=== PATIENT | male | born 1945 | race Hispanic/Latino ===

== ENCOUNTER 2018-01-12 15:09 | Outpatient (CLI) | payer MEDICARE | END 2018-01-12 15:10 | disposition home or self-care (01) | LOC: BICULT 15:09 | PROVIDERS: ATTEND Family Medicine | DX: G46.4 Cerebellar stroke syndrome (principal); I48.2 Chronic atrial fibrillation | CPT/HCPCS: 93880 ==

== ENCOUNTER 2018-11-03 08:53 | Outpatient (CLI) | payer MEDICARE ==
[2018-11-03 09:29] LABS: Estimated GFR-MDRD - POC Greater than 90
--- NOTE | 2018-11-03 11:47 | CT ---
CT ANGIOGRAM OF THE HEAD CT ANGIOGRAM OF THE NECK Date: 11-03-18 Comparison: 11-15-16 History: Transient ischemic attack. Technique: Axial CT imaging is obtained at 5 mm intervals from vertex through skull base without cont rast. Then, following the administration of intravenous contrast, axial CT imaging at 1.25 mm interva ls from vertex through apices with IV contrast using a CT angiogram protocol. Coronal and sagittal 3D reformatted imaging obtained. FINDINGS: The noncontrast enhanced head CT demonstrates encephalomalacia involving the superior aspect of the r ight cerebellar hemisphere, evidence of prior right cerebellar infarction. In the left frontoparietal region there is a vague area of hypodensity with loss of mars white differentiation suggesting an ar ea of acute/subacute infarction, consistent with provided history of small stroke approximately on e week ago. There is no associated hemorrhage, midline shift, or mass effect. Images paranasal sinuses/mastoid air cells well aerated. On post contrast imaging, imaged lung apices appear grossly unremarkable. The retro, antral and parapharyngeal fat appears clear bilaterally. The parotid and submandibular glands appear grossly unremarkable. Region of the tonsillar pillars, epiglottis and pre epiglottic fat, hyoid bone, thyroid cartilage, cr icoid cartilage and thyroid gland appear grossly unremarkable. No lymphadenopathy is noted in the neck. There is a bovine arch present. There is mild atherosclerotic calcification at the origin of the left common carotid artery and left subclavian artery with no hemodynamically significant stenosis. There is atherosclerotic calcificatio n at the origin of the right subclavian artery with no hemodynamically significant stenosis. Left com mon carotid artery is tortuously proximally and demonstrates no hemodynamically significant stenosis on the basis of NASCET criteria. Right common carotid artery is tortuous proximally as well. Minimal calcified plaque at the origin of the left internal carotid artery with no hemodynamically si gnificant stenosis seen. There is prominent calcified plaque at the level of the distal right CCA and proximal right ICA with prominent stenosis at this level, difficult to accurately measure secondary to the degree of densely calcified plaque. The stenosis involving the distal most aspect of the left common carotid artery and origin of the left internal carotid artery is felt to be stable when compared to 11-05-16, measuring i n the 50-60% range. The bilateral vertebral arteries are patent and appear grossly unremarkable. CT angiogram of the head demonstrates a patent basilar artery. The basilar arterial branches appear p atent with no hemodynamically significant stenosis or sacular aneurysm. As seen on the prior examinat ion, the distal portion of the right superior cerebellar artery is occluded. There is atherosclerotic calcification involving the cavernous segment of bilateral internal carotid arteries. The A1 segment is patent bilaterally and distal DENA branches appear grossly unremarkable. The M1 segment, the MCA bifurcation and distal MCA branches appear intact. Review of the osseous structures demonstrate degenerative change ant the C1-2 interspace. There is al so degenerative change involving the C4-5, C5-6 and C6-7 levels with disc spaced narrowing and anteri or osteophyte formation. IMPRESSION: 1. Noncontrast enhanced head CT demonstrates acute/subacute infarction involving left posterior later al frontoparietal region near vertex. No associated hemorrhage. 2. On the basis of heavily calcified plaque, there is stable stenosis at the distal CCA/proximal ICA on the right. 3. No hemodynamically significant stenosis involving the parotid system on the left. POS: JAIME
[2018-11-03] MEDS ORDERED: Iopamidol 370 76% 100 ML VIAL ONE (16:51)
== END 2018-11-03 08:54 | disposition home or self-care (01) ==
LOC: CT 08:53
PROVIDERS: ATTEND Student in an Organized Health Care Education/Training Program
DX: G45.9 Transient cerebral ischemic attack, unspecified (principal); I63.9 Cerebral infarction, unspecified; I65.21 Occlusion and stenosis of right carotid artery
CPT/HCPCS: 70496; 70498; 82565

== ENCOUNTER 2020-01-16 06:34 | Day surgery (SDC) | payer MEDICARE ==
[2020-01-15 11:08] VITALS: BMI 32.9
[2020-01-16] MEDS ORDERED: PROPOFOL 200 MG/20 ML VIAL ONE (10:26)
--- NOTE | 2020-01-16 11:24 | OP ---
DATE OF PROCEDURE: 01/16/2020 PROCEDURE PERFORMED: Colonoscopy with snare polypectomy. PREOPERATIVE DIAGNOSIS: Colon cancer screening. DESCRIPTION OF PROCEDURE: Informed consent was obtained from the patient. He was sedated with total intravenous anesthesia. The rectal exam was performed and was normal. The colonoscope was advanced to the cecum, where the ileocecal valve and appendiceal orifice were clearly identified. The preparation quality was excellent. He had a 4 mm polyp removed from the ascending colon by cold snare polypectomy. I removed a 4 mm polyp from the descending colon by cold snare polypectomy. There was klyo-[id number] left-sided diverticulosis. The remainder of the colonic mucosa was normal. Retroflexed views in the rectum were normal. IMPRESSION: 1. A 4 mm ascending polyp was removed. 2. A 4 mm descending polyp was removed. 3. Left-sided teip-aq-ommfrtvl diverticulosis. RECOMMENDATIONS: 1. Await histopathology. 2. He should not require future colonoscopy for [employer] screening alone. Job ID: [id number]
--- NOTE | 2020-01-16 22:55 | EKG ---
Test Reason : PREOP Blood Pressure : / mmHG Vent. Rate : 083 BPM Atrial Rate : 234 BPM P-R Int : 000 ms QRS Dur : 150 ms QT Int : 428 ms P-R-T Axes : 000 -54 088 degrees QTc Int : 502 ms Atrial fibrillation Left axis deviation Left bundle branch block Abnormal ECG When compared with ECG of 15-NOV-2016 01:36, Atrial fibrillation has replaced Sinus rhythm Confirmed by IDALMIS BRUNSON, DR. Jimenez ([id number]) on 01/16/2020 10:54:49 PM Referred By: SAWYER Confirmed By:DR. Barbara RAYGOZA MD
== END 2020-01-16 09:48 | disposition home or self-care (01) ==
LOC: SDC 06:34
PROVIDERS: ATTEND Internal Medicine Gastroenterology
PROC: 0DBK8ZX Excision of Ascending Colon, Via Natural or Artificial Opening Endoscopic, Diagnostic (ICD-10-PCS; principal; 2020-01-16)
PROC: 0DBM8ZX Excision of Descending Colon, Via Natural or Artificial Opening Endoscopic, Diagnostic (ICD-10-PCS; 2020-01-16)
DX: Z12.11 Encounter for screening for malignant neoplasm of colon (principal); D12.2 Benign neoplasm of ascending colon; D12.4 Benign neoplasm of descending colon; K57.30 Diverticulosis of large intestine without perforation or abscess without bleeding; I48.91 Unspecified atrial fibrillation; I11.0 Hypertensive heart disease with heart failure; I50.9 Heart failure, unspecified; M81.0 Age-related osteoporosis without current pathological fracture; Z79.02 Long term (current) use of antithrombotics/antiplatelets; Z79.82 Long term (current) use of aspirin; Z79.899 Other long term (current) drug therapy; Z88.0 Allergy status to penicillin; Z91.013 Allergy to seafood; Z91.041 Radiographic dye allergy status
CPT/HCPCS: 88305; 93005; 93010; J2704

== ENCOUNTER 2020-02-02 11:40 | Emergency (ER) | payer MEDICARE ==
[~2020-02-02 11:40] MED LIST: EPHEDRINE 25 MG/5 ML SYRINGE ONE; Ropivacaine 0.5% HCl/PF (150 MG/30 ML VIAL) ONE
--- NOTE | 2020-02-02 12:40 | RAD ---
Right Little finger 3 views HISTORY: Injury. FINDINGS: Oblique laceration/fracture through the distal phalanx, extending just medial to the articu lar surface at the base. There is minimal valgus angulation at the fracture plane. 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 Extensive associated soft tissue laceration. No metallic foreign bodies evident. IMPRESSION : Fracture/laceration of the distal phalanx right little finger without intra-articular component evide nt.
[2020-02-02] MEDS ORDERED: Adacel (T-DAP) 0.5 ML SYRINGE ONE (13:51)
[2020-02-02] MEDS ORDERED: Vancomycin 1 GM/200 ML BAG ONE (14:24)
[2020-02-02] MEDS ORDERED: Fentanyl 100 MCG/2 ML VIAL ONE (14:30)
[2020-02-02] MEDS ORDERED: Lidocaine 1% w/Epinephrine 1:100K 20 ML VIAL ONE (15:05)
[2020-02-02] MEDS ORDERED: Bupivacaine PF 0.5% 30 ML VIAL ONE (15:05)
[2020-02-02] MEDS ORDERED: Bacitracin Zinc Ointment 30 gm TUBE ONE (15:05)
[2020-02-02] MEDS ORDERED: Midazolam HCl 2 mg/2 ml Vial ONE (15:36)
[2020-02-02] MEDS ORDERED: Propofol 500 MG/50 ML VIAL ONE (15:44)
[2020-02-02] MEDS ORDERED: EPHEDRINE 25 MG/5 ML SYRINGE ONE (16:08)
--- NOTE | 2020-02-02 18:04 | RAD ---
RIGHT LITTLE FINGER TWO VEIWS: 02/02/20 HISTORY: Intraoperative films. These show pinning of the distal phalanx fracture which appears to be stable and in good position. IMPRESSION: Pinning of distal phalanx fracture. POS: JOSE
--- NOTE | 2020-02-04 09:54 | OP ---
DATE OF PROCEDURE: 02/02/2020 PREOPERATIVE DIAGNOSES: 1. Open distal phalanx fracture, right small finger. 2. Right small finger 3 cm wound. 3. Right ulnar digital nerve laceration, small finger. FINDINGS: 2 rami laceration, digital nerve ulnar aspect with 1 to 2 mm of comminution and loss of bone secondary to saw, required grafting after fixation. PROCEDURES PERFORMED: 1. Debridement of bone and material associated with open fracture, right small finger distal phalanx. 2. Debridement of wound, right small finger distal phalanx. 3. Closure of wound, right small finger 3 cm. 4. C-arm supervision by surgeon intraoperatively. 5. Open reduction and internal fixation of distal phalanx fracture using three 0.035 K-wires. 6. Microscopic digital nerve neuroplasty. 7. Microscopic digital nerve repair. 8. Bone graft Synthes, 0.25 mm of bone putty. TOURNIQUET TIME: 95 minutes. ESTIMATED BLOOD LOSS: Less than or equal to 20 mL. HISTORY: The patient is on Plavix, had his hand caught by his band saw in his own work site at home. This occurred approximately 3 hours prior to surgery and brought to the operating room because of an open fracture, possible contamination, and need to restore anatomy and clean deep in order to prevent infection and making this an urgent case. DESCRIPTION OF PROCEDURE: After successful general endotracheal anesthesia, limb was prepped and draped. After prep and drape before tourniquet inflated, he had 1-second refill and pink digits. We then exsanguinated the limb, inflated tourniquet to 250 mmHg pressure and his block worked well. We then immediately extended this incision 5 mm distal along the ulnar aspect of the space and 1 cm proximal to expose the entire digital nerve. We saw that 2 rami were cut, the 2 most ulnar rami, with the central rami intact into the skin itself on the distal edge of the laceration. We saw the flexor tendon and its sheath unviolated as the bony laceration was distal to its insertion. We then performed debridement using a curette, freer, Smith blade, and tenotomy scissors. We then irrigated with 2 L normal saline bulb syringe pressure, antibiotics inside. The debridement was excisional and the depth was down to include the bone all way to the dorsal portion. We had a palmar approach, finished irrigation, and then visualized the fracture site, reduced it nearly anatomically except for on the palmar aspect, there was more bone loss in the dorsal aspect, so once this reduced, the dorsal 50% and the palmar 50% had a 1 mm bone loss. We maintained excellent rotation and passed three K-wires from distal to proximal and it was very stable construct. We then placed the bone putty inside. We brought the microscope to the field and did a microscopic neuroplasty and found the ulnar digital nerve. The radial side was not violated at the neurovascular bundle. We then noticed that 2 rami were cut, the 2 most ulnar rami, and we found the opposite side. We then used a 9-0 Nurolon suture under microscope to repair the digital nerve branches. This was done with a 2-suture technique for each nerve repair. We released the tourniquet. Microscope was removed from the field. We then saw that the patient had a 20-degree flexion of the DIP joint and 50-degree flexion of the PIP joint at rest and had a normal arc of flexion seen. We then closed the incision with 5-0 nylon interrupted simple pattern. Digits remained pink with 1-second refill. The wires were cut at the level of the skin and the patient left the operating room with radiographs showing excellent position of the fracture and clinically knowing we had placed the bone graft. Job ID: [id number]
--- NOTE | 2020-02-07 13:10 | EKG ---
Test Reason : SX Blood Pressure : / mmHG Vent. Rate : 065 BPM Atrial Rate : 065 BPM P-R Int : 000 ms QRS Dur : 150 ms QT Int : 490 ms P-R-T Axes : 066 -54 116 degrees QTc Int : 509 ms Sinus rhythm with 1st degree A-V block Left axis deviation Left bundle branch block Abnormal ECG Confirmed by MARILEE GUTIÉRREZ DO ([id number]), map editor YESSENIA MENDENHALL ([id number]) on 02/07/2020 1:10:40 PM Referred By: MARLA Confirmed By:MARILEE GUTIÉRREZ DO
== END 2020-02-02 14:00 | disposition admitted as inpatient to this hospital (09) ==
LOC: ERS 11:40 → SDC 14:45
DX: S62.636A Displaced fracture of distal phalanx of right little finger, initial encounter for closed fracture (principal); S61.216A Laceration without foreign body of right little finger without damage to nail, initial encounter; I48.91 Unspecified atrial fibrillation; E78.5 Hyperlipidemia, unspecified; I10 Essential (primary) hypertension; Z87.891 Personal history of nicotine dependence; W45.8XXA Other foreign body or object entering through skin, initial encounter
CPT/HCPCS: 76000; 90471; 90715; 93005; J2250; J2704; J2795; J3010; J3370; J3490; S0020

== ENCOUNTER 2022-09-19 17:30 | Inpatient (IN) | payer MEDICARE, OTHER ==
[~2022-09-19 17:30] MED LIST changes: -EPHEDRINE 25 MG/5 ML SYRINGE ONE; +Iopamidol-370 76% 500 ML 1 ML ONE; -Ropivacaine 0.5% HCl/PF (150 MG/30 ML VIAL) ONE
[2022-09-19 17:50] LABS: #Eosinphils 0.3 thou/uL (0.0-0.7); #Lymphocytes 2.8 thou/uL (1.20-3.40); #Monocytes 0.9 thou/uL (0.11-0.59); #Neutrophils 3.5 thou/uL (1.40-6.50); %Basophils 0.3 % (0.0-1.0); %Eosinophils 4.6 % (0.0-10.0); %Lymphocytes 36.9 % (21.0-51.0); %Monocytes 12.1 % (0.0-10.0); %Neutrophils 46.1 % (42.0-75.0); Mean Corpuscular HGB CONC 33.9 g/dL (32.0-36.0); Mean Corpuscular Hemoglobin 34.1 pg (27.0-31.0); Mean Platelet Volume 7.6 fL (7.4-10.4); Platelet Count 200 10x3/uL (130-400); RBC Distribution Width 11.8 % (11.5-14.5); Red Blood Cell (RBC) Count 4.39 mill/uL (4.70-6.10); White Blood Cell (WBC) Count 7.5 10x3/uL (4.8-10.8)
[2022-09-19] MEDS ORDERED: methylPREDNISolone Sod Succ/PF 125 MG/2 ML VIAL ONE (18:00)
[2022-09-19] MEDS ORDERED: diphenhydrAMINE 50 MG/ML VIAL ONE (18:00)
[2022-09-19] MEDS ORDERED: Famotidine/PF 20 mg/2ml Vial ONE (18:00)
[2022-09-19 18:03] LABS: INR-International Normal Ratio 1.1; PTT 34.9 sec (22.9-36.1); Prothrombin Time 14.7 sec (12.0-14.7)
[2022-09-19 18:05] LABS: ALT (SGPT) 11 U/L (8-55); AST (SGOT) 14 U/L (5-34); Albumin 4.3 g/dL (3.4-4.8); Alkaline Phosphatase 91 U/L (40-110); Anion Gap 12 mmol/L (10-20); BUN (Urea Nitrogen) 15 mg/dL (8.4-25.7); Bilirubin, Total 0.7 mg/dL (0.2-1.2); CK (CPK) 100 U/L (30-200); Calc. Creatinine Clearance 0 mL/min (70-130); Calcium 9.2 mg/dL (7.8-10.44); Carbon Dioxide 28 mmol/L (23-31); Chloride 104 mmol/L (98-107); Estimated GFR 73; Globulin 3.8 g/dL (2.4-3.5); Glucose 110 mg/dL (83-110); Potassium 4.3 mmol/L (3.5-5.1); Protein, Total 8.1 g/dL (5.8-8.1); Sodium 140 mmol/L (136-145)
[2022-09-19] MEDS ORDERED: Ondansetron PF 4 MG/2 ML Vial IVP PRN (20:18)
[2022-09-19] MEDS ORDERED: Acetaminophen 325 MG TAB PO PRN (20:18)
[2022-09-19] MEDS: Atorvastatin Calcium 40 MG TAB PO SCH (22:14)
[2022-09-19] MEDS: Metoprolol Tartrate 25 MG TAB PO SCH (22:15)
[2022-09-19] MEDS: Clopidogrel Bisulfate 75 MG TAB PO SCH (22:15)
[2022-09-20 04:14] VITALS: BMI 33.2
[2022-09-20 06:42] LABS: #Lymphocytes 1.1 thou/uL (1.20-3.40); #Monocytes 0.1 thou/uL (0.11-0.59); #Neutrophils 4.4 thou/uL (1.40-6.50); %Basophils 0.2 % (0.0-1.0); %Eosinophils 0.1 % (0.0-10.0); %Lymphocytes 18.9 % (21.0-51.0); %Monocytes 1.3 % (0.0-10.0); %Neutrophils 79.5 % (42.0-75.0); Hemoglobin 17.4 g/dL (14.0-18.0); Mean Corpuscular HGB CONC 36.2 g/dL (32.0-36.0); Mean Corpuscular Volume 99.7 fl (78.0-98.0); Mean Platelet Volume 7.8 fL (7.4-10.4); Platelet Count 208 10x3/uL (130-400); RBC Distribution Width 11.7 % (11.5-14.5); Red Blood Cell (RBC) Count 4.82 mill/uL (4.70-6.10); White Blood Cell (WBC) Count 5.6 10x3/uL (4.8-10.8)
[2022-09-20 06:51] LABS: Hemoglobin A1c 5.8 % (4.0-6.0)
[2022-09-20 07:08] LABS: Anion Gap 12 mmol/L (10-20); BUN (Urea Nitrogen) 17 mg/dL (8.4-25.7); Calc. Creatinine Clearance 88 mL/min (70-130); Calcium 8.9 mg/dL (7.8-10.44); Carbon Dioxide 26 mmol/L (23-31); Cardiac Risk 2.5 (Less than 4.5); Chloride 104 mmol/L (98-107); Cholesterol 101 mg/dl (< 200 Desired); Estimated GFR 86; Glucose 151 mg/dL (83-110); HDL Cholesterol 41 mg/dL (>60 Neg Risk); LDL Cholesterol, Calculated 52 mg/dL; Potassium 4.1 mmol/L (3.5-5.1); Sodium 138 mmol/L (136-145); Triglycerides 38 mg/dL (Less than 150)
[2022-09-20] MEDS: Metoprolol Tartrate 25 MG TAB PO SCH ×2 (09:26→20:25)
[2022-09-20] MEDS: Aspirin 81 mg Enteric Coated Tablet PO SCH (09:26)
[2022-09-20] MEDS: Enoxaparin Sodium 100 MG/ML SYRINGE SC SCH (20:23)
[2022-09-20] MEDS: Clopidogrel Bisulfate 75 MG TAB PO SCH (20:25)
[2022-09-20] MEDS: Atorvastatin Calcium 40 MG TAB PO SCH (20:25)
[2022-09-21] MEDS: Metoprolol Tartrate 25 MG TAB PO SCH (08:07)
[2022-09-21] MEDS: Aspirin 81 mg Enteric Coated Tablet PO SCH (08:07)
[2022-09-21] MEDS: Enoxaparin Sodium 100 MG/ML SYRINGE SC SCH (08:08)
[2022-09-21 15:41] VITALS: BP 156/85; TEMP 98
[2022-09-21] MEDS ORDERED: Lisinopril 20 MG TAB PO SCH (21:00)
[2022-09-22] MEDS ORDERED: Apixaban 5 MG TAB PO SCH (09:00)
== END 2022-09-21 18:00 | disposition home or self-care (01) | DRG 65 ==
LOC: ERS 17:30 → NEURO 19:50 → OBSVTOIN 09-21 13:16
PROVIDERS: ADMIT Family Medicine; ATTEND Family Medicine
DX: I63.9 Cerebral infarction, unspecified (principal); R29.700 NIHSS score 0; Z20.822 Contact with and (suspected) exposure to COVID-19; I48.92 Unspecified atrial flutter; I50.22 Chronic systolic (congestive) heart failure; E78.5 Hyperlipidemia, unspecified; I48.91 Unspecified atrial fibrillation; I25.10 Atherosclerotic heart disease of native coronary artery without angina pectoris; I49.3 Ventricular premature depolarization; I44.7 Left bundle-branch block, unspecified; R20.2 Paresthesia of skin; I65.21 Occlusion and stenosis of right carotid artery; Z53.20 Procedure and treatment not carried out because of patient's decision for unspecified reasons; I11.0 Hypertensive heart disease with heart failure; Z86.73 Personal history of transient ischemic attack (TIA), and cerebral infarction without residual deficits; Z91.041 Radiographic dye allergy status; Z88.0 Allergy status to penicillin; Z91.013 Allergy to seafood; Z79.899 Other long term (current) drug therapy; Z79.82 Long term (current) use of aspirin; Z79.02 Long term (current) use of antithrombotics/antiplatelets; Z90.49 Acquired absence of other specified parts of digestive tract; Z90.89 Acquired absence of other organs; Z86.79 Personal history of other diseases of the circulatory system; Z85.038 Personal history of other malignant neoplasm of large intestine; Z87.19 Personal history of other diseases of the digestive system; Z87.891 Personal history of nicotine dependence
CPT/HCPCS: 36415; 36416; 70450; 70496; 70498; 70551; 80048; 80053; 80061; 82550; 83036; 84484; 85025; 85610; 85730; 93005; 96372; 96374; 96375; G0378; J1200; J1650; J2930; Q9967; S0028; U0003; U0005

== ENCOUNTER 2023-02-11 05:35 | Day surgery (SDC) | payer OTHER ==
[2023-02-10 11:40] VITALS: BMI 33.0
== END 2023-02-11 08:12 | disposition home or self-care (01) ==
LOC: SDC 05:35
PROVIDERS: ATTEND Internal Medicine Cardiovascular Disease
PROC: 5A2204Z Restoration of Cardiac Rhythm, Single (ICD-10-PCS; principal; 2023-02-11)
DX: I48.4 Atypical atrial flutter (principal); I48.19 Other persistent atrial fibrillation; I44.0 Atrioventricular block, first degree; I44.7 Left bundle-branch block, unspecified; I11.0 Hypertensive heart disease with heart failure; I50.22 Chronic systolic (congestive) heart failure; I47.1 Supraventricular tachycardia; I25.10 Atherosclerotic heart disease of native coronary artery without angina pectoris; E78.00 Pure hypercholesterolemia, unspecified; Z86.73 Personal history of transient ischemic attack (TIA), and cerebral infarction without residual deficits; Z87.891 Personal history of nicotine dependence; Z79.01 Long term (current) use of anticoagulants; Z79.82 Long term (current) use of aspirin; Z79.899 Other long term (current) drug therapy; Z88.0 Allergy status to penicillin; Z91.013 Allergy to seafood; Z91.041 Radiographic dye allergy status
CPT/HCPCS: 92960; 93005; 93010

== ENCOUNTER 2023-03-08 07:50 | Day surgery (SDC) | payer OTHER ==
[2023-03-05 16:55] VITALS: BMI 33.0
[2023-03-05 18:15] LABS: INR-International Normal Ratio 1.1; Prothrombin Time 11.6 sec (9.5-12.1)
[2023-03-05 18:17] LABS: Anion Gap 16 mmol/L (10-20); BUN (Urea Nitrogen) 21 mg/dL (8.4-25.7); Calc. Creatinine Clearance 73 mL/min (70-130); Calcium 9.1 mg/dL (7.8-10.44); Carbon Dioxide 26 mmol/L (23-31); Chloride 103 mmol/L (98-107); Estimated GFR 69; Glucose 120 mg/dL (83-110); Potassium 4.5 mmol/L (3.5-5.1); Sodium 140 mmol/L (136-145)
[2023-03-05 18:18] LABS: Hemoglobin 15.5 g/dL (13.5-17.5); Mean Corpuscular Hemoglobin 32.2 pg (27.0-33.0); Mean Corpuscular Volume 94.8 fl (81.2-95.1); Mean Platelet Volume 9.9 fl (7.4-10.4); Platelet Count 234 10x3/uL (150-450); RBC Distribution Width 12.8 % (11.5-14.5); Red Blood Cell (RBC) Count 4.81 10x6/uL (4.32-5.72); White Blood Cell (WBC) Count 8.2 10x3/uL (3.5-10.5)
[2023-03-08] MEDS ORDERED: Vancomycin (BATCH) 1.5 GRAM/300 ML BAG ONE (08:44)
[2023-03-08] MEDS ORDERED: Clindamycin/D5W 900 mg/50 ml Premix Bag ONE (09:06)
[2023-03-08] MEDS ORDERED: Gentamicin 80 MG/2 ML VIAL ONE (09:06)
[2023-03-08] MEDS ORDERED: Lidocaine 1% (PF) 30 ML VIAL ONE (09:06)
[2023-03-08] MEDS ORDERED: Iopamidol 370 76% 100 ML VIAL ONE (09:58)
[2023-03-08] MEDS ORDERED: PROPOFOL 200 MG/20 ML VIAL ONE (10:18)
[2023-03-08] MEDS ORDERED: ePHEDrine Sulfate 50 MG/10 ML VIAL ONE (10:18)
== END 2023-03-08 17:00 | disposition home or self-care (01) ==
LOC: SDC 07:50
PROVIDERS: ATTEND Internal Medicine Cardiovascular Disease
PROC: 0JH607Z Insertion of Cardiac Resynchronization Pacemaker Pulse Generator into Chest Subcutaneous Tissue and Fascia, Open Approach (ICD-10-PCS; principal; 2023-03-08)
PROC: 02HL3JZ Insertion of Pacemaker Lead into Left Ventricle, Percutaneous Approach (ICD-10-PCS; 2023-03-08)
PROC: 02H63JZ Insertion of Pacemaker Lead into Right Atrium, Percutaneous Approach (ICD-10-PCS; 2023-03-08)
PROC: 02HK3JZ Insertion of Pacemaker Lead into Right Ventricle, Percutaneous Approach (ICD-10-PCS; 2023-03-08)
DX: I44.2 Atrioventricular block, complete (principal); I25.5 Ischemic cardiomyopathy; I11.0 Hypertensive heart disease with heart failure; I50.22 Chronic systolic (congestive) heart failure; I48.0 Paroxysmal atrial fibrillation; I48.4 Atypical atrial flutter; I47.1 Supraventricular tachycardia; E78.00 Pure hypercholesterolemia, unspecified; I25.10 Atherosclerotic heart disease of native coronary artery without angina pectoris; Z86.73 Personal history of transient ischemic attack (TIA), and cerebral infarction without residual deficits; Z87.891 Personal history of nicotine dependence; Z79.01 Long term (current) use of anticoagulants; Z79.82 Long term (current) use of aspirin; Z79.899 Other long term (current) drug therapy; Z88.0 Allergy status to penicillin; Z91.013 Allergy to seafood; Z91.041 Radiographic dye allergy status
CPT/HCPCS: 71045; 80048; 85027; 85610; 93005; C1898 ×2; C1900; C2621; J3370; 33208; 33225; 93010; C1769; C1894; J1580; J2001; J2704; J3490

== ENCOUNTER 2023-05-24 05:39 | Inpatient (IN) | payer OTHER ==
[2023-05-24] MEDS ORDERED: Protamine Sulfate 50 MG/5 ML VIAL ONE ×2 (06:33→06:43)
[2023-05-24] MEDS ORDERED: Heparin 5,000 UNITS/ML VIAL ONE (06:33)
[2023-05-24] MEDS ORDERED: Bupivacaine HCl 0.5%/Epinephrine 1:200,000/PF 30 ml Vial ONE (06:33)
[2023-05-24] MEDS ORDERED: niCARdipine 25 MG/10 ML SDV ONE (06:43)
[2023-05-24] MEDS ORDERED: Nitroglycerin 50 MG/250 ML BOT 0 ML ONE (06:44)
[2023-05-24] MEDS ORDERED: Phenylephrine 10 MG/ML VIAL ONE (07:03)
[2023-05-24 07:15] LABS: #Eosinphils 0.4 thou/uL (0.0-0.7); #Monocytes 0.9 thou/uL (0.11-0.59); #Neutrophils 3.1 thou/uL (1.40-6.50); %Basophils 0.6 % (0.0-1.0); %Eosinophils 5.2 % (0.0-10.0); %Monocytes 12.7 % (0.0-10.0); %Neutrophils 43.2 % (42.0-75.0); Hemoglobin 14.6 g/dL (14.0-18.0); Mean Corpuscular Hemoglobin 32.4 pg (27.0-31.0); Mean Platelet Volume 10.2 fL (7.4-10.4); Platelet Count 191 10x3/uL (130-400); RBC Distribution Width 12.7 % (11.5-14.5); Red Blood Cell (RBC) Count 4.51 mill/uL (4.70-6.10); White Blood Cell (WBC) Count 7.1 10x3/uL (4.8-10.8)
[2023-05-24 07:35] LABS: Anion Gap 12 mmol/L (10-20); BUN (Urea Nitrogen) 21 mg/dL (8.4-25.7); Calc. Creatinine Clearance 67 mL/min (70-130); Carbon Dioxide 26 mmol/L (23-31); Chloride 106 mmol/L (98-107); Estimated GFR 61; Glucose 101 mg/dL (83-110); Potassium 4.1 mmol/L (3.5-5.1); Sodium 140 mmol/L (136-145)
[2023-05-24] MEDS ORDERED: Lidocaine 1% PF 5 ML VIAL ONE (08:38)
[2023-05-24] MEDS ORDERED: Ondansetron PF 4 MG/2 ML Vial ONE (08:38)
[2023-05-24] MEDS ORDERED: Labetalol HCl 100 MG/20 ML VIAL ONE ×2 (08:38→11:55)
[2023-05-24] MEDS ORDERED: Rocuronium Bromide 10 MG/ML (10ML VIAL) ONE (08:38)
[2023-05-24] MEDS ORDERED: Acetaminophen 500 MG TAB ONE (08:48)
[2023-05-24] MEDS ORDERED: Lidocaine 1% MPF 2 ML VIAL ONE (08:58)
[2023-05-24] MEDS ORDERED: Fentanyl 250 MCG/5 ML VIAL ONE (09:07)
[2023-05-24] MEDS ORDERED: Norepinephrine 4 MG/4 ML VIAL ONE (09:07)
[2023-05-24] MEDS ORDERED: Lidocaine 2% 6 ML (Jelly) SYR ONE (09:33)
[2023-05-24] MEDS ORDERED: LevoFLOXacin 500 mg/D5W 100 ML BAG ONE (09:48)
[2023-05-24] MEDS ORDERED: Clindamycin/D5W 600 mg/50 ml Premix Bag ONE (09:48)
[2023-05-24] MEDS ORDERED: SUGAMMADEX SODIUM 200 MG/2 ML VIAL ONE (09:59)
[2023-05-24] MEDS ORDERED: Phenylephrine 40 MG in Sodium Chloride 0.9% 250 ML 250 ML IVPB PRN (11:57)
[2023-05-24] MEDS ORDERED: Ondansetron PF 4 MG/2 ML Vial IVP PRN (11:57)
[2023-05-24] MEDS ORDERED: Acetaminophen 325 MG TAB PO PRN (11:57)
[2023-05-24] MEDS ORDERED: niCARdipine 25 MG in Sodium Chloride 0.9% 250 ML 250 ML IVPB PRN (11:57)
[2023-05-24] MEDS ORDERED: Clindamycin/D5W 900 MG in Premix Bag 1 BAG IVPB SCH (11:57)
[2023-05-24] MEDS ORDERED: Ipratropium/Albuterol 3 ML NEB NEB PRN (11:57)
[2023-05-24] MEDS ORDERED: traMADol HCl 50 MG TAB PO PRN (11:57)
[2023-05-24] MEDS: Sodium Chloride 0.9% 1,000 ML IV SCH ×2 (13:33→22:06)
[2023-05-24 14:20] VITALS: BMI 35.2
[2023-05-24] MEDS: Clindamycin/D5W 300 MG in Premix Bag 1 BAG IVPB SCH ×7 (16:28→23:14)
[2023-05-24 20:22] VITALS: BP 127/74
[2023-05-24] MEDS ORDERED: Atorvastatin Calcium 10 MG TAB PO SCH (21:00)
[2023-05-24] MEDS ORDERED: Lisinopril 20 MG TAB PO SCH (21:00)
[2023-05-24] MEDS: fentaNYL 50 mcg/mL 1 mL Vial SLOW IVP PRN (21:23)
[2023-05-25] MEDS: fentaNYL 50 mcg/mL 1 mL Vial SLOW IVP PRN (03:40)
[2023-05-25] MEDS: Clindamycin/D5W 300 MG in Premix Bag 1 BAG IVPB SCH ×6 (04:28→07:41)
[2023-05-25] MEDS: Sodium Chloride 0.9% 1,000 ML IV SCH (07:16)
[2023-05-25 08:09] VITALS: TEMP 98.6
[2023-05-25] MEDS ORDERED: Aspirin Chewable 81 MG TAB PO SCH (09:00)
== END 2023-05-25 08:49 | disposition home or self-care (01) | DRG 39 ==
LOC: SURG A 05:39 → CCU 12:58
PROVIDERS: ADMIT Thoracic Surgery (Cardiothoracic Vascular Surgery); ATTEND Thoracic Surgery (Cardiothoracic Vascular Surgery)
PROC: 03CK0ZZ Extirpation of Matter from Right Internal Carotid Artery, Open Approach (ICD-10-PCS; principal; 2023-05-24)
PROC: 03UK0KZ Supplement Right Internal Carotid Artery with Nonautologous Tissue Substitute, Open Approach (ICD-10-PCS; 2023-05-24)
DX: I65.21 Occlusion and stenosis of right carotid artery (principal); I10 Essential (primary) hypertension; E78.5 Hyperlipidemia, unspecified; I48.91 Unspecified atrial fibrillation; Z98.890 Other specified postprocedural states; Z90.49 Acquired absence of other specified parts of digestive tract; Z79.899 Other long term (current) drug therapy; Z79.01 Long term (current) use of anticoagulants; Z90.89 Acquired absence of other organs; Z82.49 Family history of ischemic heart disease and other diseases of the circulatory system; Z88.0 Allergy status to penicillin
CPT/HCPCS: 80048; 85025; C1768; J1644; J1956; J2370; J2405; J2720; J3010; J3490; J7050